=== PATIENT | female | born 1945 | race African-American/Black ===

== ENCOUNTER 2016-09-01 20:25 | Observation (INO) | payer OTHER ==
--- NOTE | 2016-09-01 20:33 | PDOC ---
Rapid Medical Evaluation Chief Complaint: Syncope/Near Syncope Time Seen by Provider: 09/01/16 20:33 Medical Evaluation: Allergies Allergy/AdvReac Type Severity Reaction Status Date / Time Penicillins Allergy Intermediate Rash Verified 09/01/16 20:32 Penicillins Allergy Intermediate Rash Uncoded 09/01/16 20:32 DUST Allergy Uncoded 09/01/16 20:32 09/01/16 20:35 71 yo c/o syncope episode while bearing down on the toilet just prior to her arrival. "Slight chest pain" without sob, ext numbness/tingling sensation.
[2016-09-01 20:57] LABS: BASOPHIL 0.3 % (0-2.0); EOSINOPHIL 0.7 % (0-4.5); MCH 30.6 pg (25.7-33.7); MEAN CELL VOLUME 90.2 fl (80-96); MEAN PLT VOLUME 7.4 fl (7.5-11.1); NEUTROPHILS 86.7 % (42.8-82.8); PLATELET COUNT 271 K/MM3 (134-434); RDW 15.4 % (11.6-15.6)
[2016-09-01 21:11] LABS: INR 1.12 (0.82-1.09); PROTHROMBIN TIME (PATIENT) 12.4 SEC (9.98-11.88)
[2016-09-01 21:20] LABS: ALBUMIN 3.8 g/dl (3.4-5.0); ANION GAP 6 (8-16); BILIRUBIN,TOTAL 0.3 mg/dL (0.2-1.0); CO2 30 mmol/L (21-32); GLUCOSE,RANDOM 112 mg/dL (74-106); SGOT/AST 13 U/L (15-37); SGPT/ALT 19 U/L (12-78); TOT PROT 6.9 g/dl (6.4-8.2)
[2016-09-01 21:23] LABS: ALK PHOS 72 U/L (45-117); TROPONIN I < 0.02 ng/ml (0.00-0.05)
--- NOTE | 2016-09-01 21:48 | PDOC ---
History of Present Illness <Caridad Pearson - Last Filed: 09/02/16 01:06> <Makenna Angel Winnie - Last Filed: 09/02/16 01:21> - General Chief Complaint: Syncope/Near Syncope Stated Complaint: SYNCOPE/HEADACHE Time Seen by Provider: 09/01/16 20:33 - History of Present Illness Initial Comments: 09/01/16 21:48 Patient is a 71 year old female with significant medical hx of GI bleed, hemorrhoids/polyps, HTN, breast CA (left breast lumpectomy with radiation), gallstones s/p cholecystectomy, chronic lower back pain with limited mobility of lower extremities, and ventral hernia who is presenting to the ED for a syncopal episode after having a bowel movement this evening. After having a BM the patient stood up, felt lightheaded with some fleeting chest pain, and collapsed. The patient hit her head on the doorframe and fell onto the ground, losing consciousness. She endorses some right knee pain since the fall and states she felt weak throughout the day prior to the event. The patient is still feeling weak with some mild chest pain at this time. Patient endorses lower extremity pain, weakness and limited mobility secondary to chronic lower back pain. Allergies: NKDA Surgical Hx: laminectomy, cholecystectomy, lumpectomy (left breast), cardiac cath (09/2011), endoscopy (08/28/16) Social Hx: denies toxic habits PMD: Ambrose Salter MD GI: Winnie Benitez MD Credentialing Coordinator: Gideon Chanel MD Railroad Car Loader: Michele Salmeron MD (Caridad Pearson) Past History <Caridad Pearson - Last Filed: 09/02/16 01:06> - Past Medical History Anemia: Yes Asthma: Yes ( A CHILD) Cancer: No Cardiac Disorders: Yes (CARDIAC CATH 09/2011; NO STENTS) CVA: No COPD: No CHF: No Dementia: No Diabetes: No GI Disorders: Yes (REFLUX) Disorders: No HTN: Yes Hypercholesterolemia: Yes Liver Disease: No Seizures: No Thyroid Disease: No - Surgical History Abdominal Surgery: Yes (HERNIA REPAIR) Appendectomy: No Cardiac Surgery: No (CARDIAC CATH) Cholecystectomy: Yes Lung Surgery: No Neurologic Surgery: Yes (CERVICAL LAMINECTOMY) Orthopedic Surgery: No - Psycho/Social/Smoking Cessation Hx Suicidal Ideation: No Smoking History: Current every day smoker Have you smoked in the past 12 months: Yes Number of Cigarettes Smoked Daily: 4 Information on smoking cessation initiated: Yes 'Breaking Loose' booklet given: 09/01/16 Hx Alcohol Use: Yes (SOCIAL) Drug/Substance Use Hx: No Substance Use Type: None Hx Substance Use Treatment: No <Makenna Angel - Last Filed: 09/02/16 01:21> - Past Medical History Allergies/Adverse Reactions: Allergies Allergy/AdvReac Type Severity Reaction Status Date / Time Penicillins Allergy Intermediate Rash Verified 09/01/16 20:32 Penicillins Allergy Intermediate Rash Uncoded 09/01/16 20:32 DUST Allergy Uncoded 09/01/16 20:32 Home Medications: Ambulatory Orders Cholecalciferol (Vitamin D3) [Vitamin D] 1,000 unit PO DAILY #0 capsule Losartan/Hydrochlorothiazide [Hyzaar 50-12.5 Tablet] 1 each PO DAILY #0 tablet 09/17/12 Melatonin 6 mg PO HS #0 tablet 09/17/12 Multivitamins [Multivit ([facility] Formulary)] 1 each PO DAILY #0 tab 09/17/12 Nitroglycerin Sublingual [Nitrostat -] 0.4 mg SL PRN 09/06/13 Rosuvastatin Calcium [Crestor] 5 mg PO DAILY 09/06/13 Metoprolol Succinate [Toprol XL -] 50 mg PO HS 09/07/13 Ascorbic Acid [Vitamin C -] 500 mg PO DAILY 05/09/14 Polyethylene Glycol 3350 [Miralax 119 gm Btl -] 17 gm PO HS PRN 05/09/14 Hydrocodone/Acetaminophen [Lortab 5-325 mg Tablet] 1 each PO Q6H PRN #20 tablet 05/18/14 Hydrocortisone Acetate [Anusol Hc Suppository -] 25 mg RC BID PRN #28 supp.rect 04/27/16 Witch Jo 50% (Tucks) [Tucks Witch Jo Pads] 40 pad TP PRN PRN #40 pad 04/27 Aspirin Coated [Ecotrin -] 1 tab PO DAILY 09/01/16 Sertraline HCl [Zoloft] 50 mg PO DAILY 09/01/16 Cardiac Specific PMH - Complaint Specific PMHX Pacemaker: No <Makenna Angel - Last Filed: 09/02/16 01:21> Review of Systems <Caridad Pearson - Last Filed: 09/02/16 01:06> <Makenna Angel - Last Filed: 09/02/16 01:21> - Review of Systems Comments:: 09/01/16 21:50 CONSTITUTIONAL: Absent: fever, chills, diaphoresis, generalized weakness, malaise, loss of appetite HEENT: Absent: rhinorrhea, nasal congestion, throat pain, throat swelling, difficulty swallowing, mouth swelling, ear pain, eye pain, visual changes CARDIOVASCULAR: Present: chest pain, lightheadedness, syncope Absent: palpitations, irregular heart rate, peripheral edema RESPIRATORY: Absent: cough, shortness of breath, dyspnea with exertion, orthopnea, wheezing, stridor, hemoptysis GASTROINTESTINAL: Absent: abdominal pain, abdominal distension, nausea, vomiting, diarrhea, constipation, melena, hematochezia GENITOURINARY: Absent: dysuria, frequency, urgency, hesitancy, hematuria, flank pain, genital pain MUSCULOSKELETAL: Present: lower extremity weakness and pain (chronic) Absent: myalgia, arthralgia, joint swelling SKIN: Absent: rash, itching, pallor HEMATOLOGIC/IMMUNOLOGIC: Absent: easy bleeding, easy bruising, lymphadenopathy, frequent infections ENDOCRINE: Absent: unexplained weight gain, unexplained weight loss, heat intolerance, cold intolerance NEUROLOGIC: Absent: headache, paresthesia, seizure, mental status changes, bladder or bowel incontinence. PSYCHIATRIC: Absent: anxiety, depression, suicidal or homicidal ideation, hallucinations (MichelCaridad) *Physical Exam <Caridad Pearson - Last Filed: 09/02/16 01:06> <Makenna Angel - Last Filed: 09/02/16 01:21> - Vital Signs Last Vital Signs Temp Pulse Resp BP Pulse Ox 97.9 F 86 18 101/56 98 09/01/16 20:32 09/01/16 20:32 09/01/16 20:32 09/01/16 20:32 09/01/16 20:32 - Physical Exam Comments: 09/01/16 21:52 GENERAL: Slender. Awake and alert. No acute distress. HEENT: Normocephalic, atraumatic. PERRLA, EOMI. No conjunctival pallor. Sclera are non- icteric. Moist mucous membranes. Oropharynx is clear. NECK: Supple. Full ROM. No JVD. Carotid pulses 2+ and symmetric, without bruits. No thyromegaly. No lymphadenopathy. CARDIOVASCULAR: Regular rate and rhythm. No murmurs, rubs, or gallops. Distal pulses are 2+ and symmetric. PULMONARY: No evidence of respiratory distress. Lungs clear to auscultation bilaterally. No wheezing, rales or rhonchi. ABDOMINAL: Soft. Non-tender. Non-distended. No rebound or guarding. No organomegaly. Normoactive bowel sounds. MUSCULOSKELETAL: Chronic lower back pain which has limited ROM of lower extremities. No bony deformities or tenderness. No CVA tenderness. EXTREMITIES: No cyanosis. No clubbing. No edema. No calf tenderness. SKIN: Warm and dry. Normal capillary refill. No rashes. No jaundice. NEUROLOGICAL: Alert, awake, appropriate. Cranial nerves 2-12 intact. Normal speech. No slurred speech. No facial droop. No confusion. PSYCHIATRIC: Cooperative. Good eye contact. Appropriate mood and affect. (Caridad Pearson) Heart Score/ECG Review <Caridad Pearson - Last Filed: 09/02/16 01:06> - History History: Moderately suspicious - Electrocardiogram EKG: Normal - Age Age: >/= 65 - Risk Factors Risk Factors Heart Score: Yes Hx Hypertension Based on the list above the patient has:: 1-2 risk factors - Troponin Troponin: </= normal limit - Score Heart Score - Total: 4 - ECG Intrepretation Rhythm: Regular Rhythm - [place]: Normal - P and AL Prominent R with upright T in V1 (true posterior AL): No Delta Wave(s) Present: No WPW: No - QRS Poor R Wave Progression: No Q Wave Present: Yes - ST and T Early Repolarization: No Non Specific ST-T Wave changes: Yes - ECG Impressions Normal ECG: Yes Non-specific ST Elevation: No Ischemic Changes: No Bradycardia: No <Makenna Angel - Last Filed: 09/02/16 01:21> #1 09/01/16 21:55 Normal sinus rhythm at 83 bpm Normal ECG (Caridad Pearson) ED Treatment Course - LABORATORY CBC & Chemistry Diagram: 09/01/16 20:50 09/01/16 20:50 - Consult/PCP Time Called: 00:51 (Attempted to call answering service three times, the line continuously rings. Have called Dr Vega's cell multiple times and left voicemail at 00:30. Awaiting a callback.) Case discussed with personal care physician: Eddy Vega MD <Caridad Pearson - Last Filed: 09/02/16 01:06> - LABORATORY CBC & Chemistry Diagram: 09/01/16 20:50 09/01/16 20:50 <Makenna Angel - Last Filed: 09/02/16 01:21> - ADDITIONAL ORDERS Additional order review: Laboratory Results 09/02/16 09/01/16 09/01/16 00:04 20:50 20:50 INR 1.12 Sodium 141 Potassium 3.6 Chloride 105 Carbon Dioxide 30 Anion Gap 6 L BUN 17 D Creatinine 1.0 D Creat Clearance w eGFR 54.50 Random Glucose 112 H D Calcium 9.0 Total Bilirubin 0.3 D AST 13 L D ALT 19 Alkaline Phosphatase 72 Creatine Kinase 74 Troponin I < 0.02 Total Protein 6.9 Albumin 3.8 Urine Color Ltyellow Urine Appearance Clear Urine pH 6.0 Ur Specific [place] 1.008 Urine Protein Negative Urine Glucose (UA) Negative Urine Ketones Negative Urine Blood Negative Urine Nitrite Negative Urine Bilirubin Negative Urine Urobilinogen Negative Ur Leukocyte Esterase Negative 09/01/16 20:50 RBC 4.09 MCV 90.2 MCHC 34.0 RDW 15.4 MPV 7.4 L Neutrophils % 86.7 H D Lymphocytes % 6.6 L D Monocytes % 5.7 Eosinophils % 0.7 Basophils % 0.3 - RADIOLOGY Radiology Studies Ordered: Category Date Time Status HEAD CT WITHOUT CONTRAST [CT] Stat CT Scan 09/01/16 21:15 Completed Radiograph Interpretation: 09/02/16 01:[address] Impression: No CT evidence of acute intracranial pathology. Apparent mid left frontal lobe cortical atrophy inferiorly described on a 2013 MRI study is difficult to appreciate on CT. Small amount of fluid within the right mastoid air cells inferiorly. Reported By: Gideon Paez MD (Caridad Pearson) *DC/Admit/Observation/Transfer <Caridad Pearson - Last Filed: 09/02/16 01:06> - Discharge Dispostion Admit: Yes <Makenna Angel - Last Filed: 09/02/16 01:21> Diagnosis at time of Disposition: Syncope Qualifiers: Syncope type: unspecified Qualified Code(s): R55 - Syncope and collapse Injury of head Qualifiers: Encounter type: initial encounter Qualified Code(s): S09.90XA - Unspecified injury of head, initial encounter Chest pain Qualifiers: Chest pain type: unspecified Qualified Code(s): R07.9 - Chest pain, unspecified - Referrals Referrals: Ambrose Salter MD [Primary Care Provider] - - Attestations Scribe Attestion: 09/01/16 21:55 Documentation prepared by Caridad Pearson, acting as medical interpreter for Makenna Angel MD. (Caridad Pearson)
[2016-09-02 00:20] LABS: URINE APPEARANCE CLEAR; URINE BILIRUBIN NEGATIVE (NEGATIVE); URINE BLOOD NEGATIVE (NEGATIVE); URINE COLOR LTYELLOW; URINE GLUCOSE (UA) NEGATIVE (NEGATIVE); URINE KETONE NEGATIVE (NEGATIVE); URINE LEUK ESTERASE NEGATIVE (NEGATIVE); URINE NITRITE NEGATIVE (NEGATIVE); URINE PROTEIN NEGATIVE (NEGATIVE); URINE UROBILINOGEN NEGATIVE E.U./dl (0.2-1.0)
--- NOTE | 2016-09-02 01:17 | PN ---
Teaching Attending Note ATTENDING PHYSICIAN STATEMENT I saw and evaluated the patient. I reviewed the resident's note and discussed the case with the resident. I agree with the resident's findings and plan as documented. SUBJECTIVE: OBJECTIVE: ASSESSMENT AND PLAN:
[2016-09-02] MEDS ORDERED: POLYETHYLENE GLYCOL 3350 119 GM BTL PO PRN (02:20)
--- NOTE | 2016-09-02 02:23 | HP ---
CHIEF COMPLAINT: syncope PCP: Gaetano HISTORY OF PRESENT ILLNESS: This is a 71 year old female with a past medical history of HTN, HLD, GI bleed, hemorrhoids, polyps, GERD, BrCA, chronic low back pain who presented to the ED s /p syncope. Pt reports that after having a BM she stood up, went to turn the light off, became lightheaded, and passed out. She also had fleeting chest pain. Pt states she is feeling fine, steady on her feet as per her RN. Pt denies current chest pain, SOB, abdominal pain, N/V/D, lightheadedness. ER course was notable for: (1) troponin neg (2) CT head with no acute changes (3) ECG NSR Recent Travel: pt denies PAST MEDICAL HISTORY: HTN HLD GI bleed hemorrhoids and polyps GERD BrCA s/p lumpectomy and radiation chronic low back pain with lower extremity weakness anemia PAST SURGICAL HISTORY: cholecystectomy ventral hernia repair x 2 cervical laminectomy lumbar surgery cardiac cath 09/2011, no stents Social History: Smoking: smokes 4 cig/day, pt has been weaning down. Smoked since age 17, never up to 1 ppd Alcohol: socially, special occasions Drugs: pt denies Family History: mother age 82, stomach CA, had heart problems father early 80s, colon CA brother age 49, cirrhosis, [place] sister alive with osteoporosis Allergies Penicillins Allergy (Intermediate, Verified 09/01/16 20:32) Rash Penicillins Allergy (Intermediate, Uncoded 09/01/16 20:32) Rash DUST Allergy (Uncoded 09/01/16 20:32) HOME MEDICATIONS: 3 Medication Instructions Recorded Cholecalciferol (Vitamin D3) 1,000 unit PO DAILY #0 capsule 09/17/12 [Vitamin D] Losartan/Hydrochlorothiazide 1 each PO DAILY #0 tablet 09/17/12 [Hyzaar 50-12.5 Tablet] Melatonin 6 mg PO HS #0 tablet 09/17/12 Multivitamins [Multivit ([facility] 1 each PO DAILY #0 tab 09/17/12 Formulary)] Nitroglycerin Sublingual 0.4 mg SL PRN 09/06/13 [Nitrostat -] Rosuvastatin Calcium [Crestor] 5 mg PO DAILY 09/06/13 Metoprolol Succinate [Toprol XL -] 50 mg PO HS 09/07/13 Ascorbic Acid [Vitamin C -] 500 mg PO DAILY 05/09/14 Polyethylene Glycol 3350 [Miralax 17 gm PO HS PRN 05/09/14 119 gm Btl -] Hydrocodone/Acetaminophen [Lortab 1 each PO Q6H PRN #20 tablet 05/18/14 5-325 mg Tablet] Hydrocortisone Acetate [Anusol Hc 25 mg RC BID PRN #28 supp.rect 04/27/16 Suppository -] Witch Jo 50% (Tucks) [Tucks 40 pad TP PRN PRN #40 pad 04/27/16 Witch Jo Pads] Aspirin Coated [Ecotrin -] 1 tab PO DAILY 09/01/16 Sertraline HCl [Zoloft] 50 mg PO DAILY 09/01/16 REVIEW OF SYSTEMS CONSTITUTIONAL: Absent: fever, chills, diaphoresis, generalized weakness, malaise, loss of appetite, weight change HEENT: Absent: rhinorrhea, nasal congestion, throat pain, throat swelling, difficulty swallowing, mouth swelling, ear pain, eye pain, visual changes CARDIOVASCULAR: Present: chest pain, syncope Absent: palpitations, irregular heart rate, lightheadedness, peripheral edema RESPIRATORY: Absent: cough, shortness of breath, dyspnea with exertion, orthopnea, wheezing, stridor, hemoptysis GASTROINTESTINAL: Absent: abdominal pain, abdominal distension, nausea, vomiting, diarrhea, constipation, melena, hematochezia GENITOURINARY: Absent: dysuria, frequency, urgency, hesitancy, hematuria, flank pain, genital pain MUSCULOSKELETAL: Absent: myalgia, arthralgia, joint swelling, back pain, neck pain SKIN: Absent: rash, itching, pallor HEMATOLOGIC/IMMUNOLOGIC: Absent: easy bleeding, easy bruising, lymphadenopathy, frequent infections ENDOCRINE: Absent: unexplained weight gain, unexplained weight loss, heat intolerance, cold intolerance NEUROLOGIC: Absent: headache, focal weakness or paresthesias, dizziness, unsteady gait, seizure, mental status changes, bladder or bowel incontinence PSYCHIATRIC: Absent: anxiety, depression, suicidal or homicidal ideation, hallucinations. PHYSICAL EXAMINATION Vital Signs - 24 hr 3 09/01/16 20:32 Temperature 97.9 F Pulse Rate 86 Respiratory 18 Rate Blood Pressure 101/56 O2 Sat by Pulse 98 Oximetry (%) GENERAL: Awake, alert, and fully oriented, in no acute distress. HEAD: Normal with no signs of trauma. EYES: Pupils equal, round and reactive to light, extraocular movements intact, sclera anicteric, conjunctiva clear. No lid lag. EARS, NOSE, THROAT: Ears normal, nares patent, oropharynx clear without exudates. Moist mucous membranes. NECK: Normal range of motion, supple without lymphadenopathy, JVD, or masses. LUNGS: Breath sounds equal, clear to auscultation bilaterally. No wheezes, and no crackles. No accessory muscle use. HEART: Regular rate and rhythm, normal S1 and S2 without murmur, rub or gallop. ABDOMEN: Soft, nontender, not distended, normoactive bowel sounds, no guarding, no rebound, no masses. No hepatomegaly or splenomegaly. MUSCULOSKELETAL: Normal range of motion at all joints. No bony deformities or tenderness. No CVA tenderness. UPPER EXTREMITIES: 2+ pulses, warm, well-perfused. No cyanosis. No clubbing. Cap refill <2 seconds. No peripheral edema. LOWER EXTREMITIES: 2+ pulses, warm, well-perfused. No calf tenderness. No peripheral edema. NEUROLOGICAL: Cranial nerves II-XII intact. Normal speech. Normal gait. PSYCHIATRIC: Cooperative. Good eye contact. Appropriate mood and affect. SKIN: Warm, dry, normal turgor, no rashes or lesions noted. Laboratory Results - last 24 hr 3 09/01/16 09/01/16 09/01/16 20:50 20:50 20:50 WBC 8.0 D RBC 4.09 Hgb 12.5 Hct 36.8 MCV 90.2 MCHC 34.0 RDW 15.4 Plt Count 271 MPV 7.4 L Neutrophils % 86.7 H D Lymphocytes % 6.6 L D Monocytes % 5.7 Eosinophils % 0.7 Basophils % 0.3 INR 1.12 Sodium 141 Potassium 3.6 Chloride 105 Carbon Dioxide 30 Anion Gap 6 L BUN 17 D Creatinine 1.0 D Creat Clearance w eGFR 54.50 Random Glucose 112 H D Calcium 9.0 Total Bilirubin 0.3 D AST 13 L D ALT 19 Alkaline Phosphatase 72 Creatine Kinase 74 Troponin I < 0.02 Total Protein 6.9 Albumin 3.8 Urine Color Urine Appearance Urine pH Ur Specific [place] Urine Protein Urine Glucose (UA) Urine Ketones Urine Blood Urine Nitrite Urine Bilirubin Urine Urobilinogen Ur Leukocyte Esterase 3 Urine Color Ltyellow 09/02/16 00:04 Urine Appearance Clear 09/02/16 00:04 Urine pH 6.0 (5.0-8.0) 09/02/16 00:04 Ur Specific [place] 1.008 (1.001-1.035) 09/02/16 00:04 Urine Protein Negative (NEGATIVE) 09/02/16 00:04 Urine Glucose (UA) Negative (NEGATIVE) 09/02/16 00:04 Urine Ketones Negative (NEGATIVE) 09/02/16 00:04 Urine Blood Negative (NEGATIVE) 09/02/16 00:04 Urine Nitrite Negative (NEGATIVE) 09/02/16 00:04 Urine Bilirubin Negative (NEGATIVE) 09/02/16 00:04 Ur Leukocyte Esterase Negative (NEGATIVE) 09/02/16 00:04 ECG: NSR< rate 85, QTC 442, no acute ST/T wave changes CT head: Impression: No CT evidence of acute intracranial pathology. Apparent mild left frontal lobe cortical atrophy inferiorly described on a 2013 MRI study is difficult to appreciate on CT. Small amount of fluid within the right mastoid air cells inferiorly. CXR: NO obvious infiltrate or effusion, final read pending ASSESSMENT/PLAN: 71yF with PMH HTN, HLD, GI bleed, hemorrhoids, polyps, GERD, BrCA, chronic low back pain presented to the ED s/p syncope. She is being admitted for observation. Syncope - likely vasovagal - telemetry monitoring - trop neg x 1, trend x 2 more HTN - cont home medications HLD - cont home medications GERD - home omeprazole changed to formulary protonix DVT PPX - chemoprophylaxis deferred as LOS expected <48h, if stays longer, reassess indication - encourage ambulation FEN - given IVF in ED, tolerating po at present - lytes ok, repeat labs in am - low sodium diet as tolerated Dispo: Pt currently requires inpatient observation for her emergent condition. Visit type - Emergency Visit Emergency Visit: Yes ED Registration Date: 09/01/16 Care time: The patient presented to the Emergency Department on the above date and was hospitalized for further evaluation of their emergent condition. - New Patient This patient is new to me today: Yes Date on this admission: 09/02/16 - Critical Care Critical Care patient: No
[2016-09-02 04:07] VITALS: BMI 25.0
[2016-09-02 04:57] LABS: TROPONIN I < 0.02 ng/ml (0.00-0.05)
[2016-09-02 09:22] LABS: BASOPHIL 0.3 % (0-2.0); EOSINOPHIL 2.3 % (0-4.5); MCH 30.2 pg (25.7-33.7); MCHC 33.6 g/dl (32.0-36.0); MEAN PLT VOLUME 7.5 fl (7.5-11.1); NEUTROPHILS 73.4 % (42.8-82.8); PLATELET COUNT 238 K/MM3 (134-434); WHITE BLOOD COUNT 5.3 K/mm3 (4.0-10.0)
[2016-09-02 09:43] LABS: ANION GAP 7 (8-16); CALCIUM 8.8 mg/dL (8.5-10.1); CO2 29 mmol/L (21-32); CREATININE 0.7 mg/dL (0.55-1.02); GLUCOSE,RANDOM 104 mg/dL (74-106); MAGNESIUM 2.1 mg/dL (1.8-2.4); PHOSPHOROUS 2.1 mg/dL (2.5-4.9)
[2016-09-02 09:45] LABS: TROPONIN I < 0.02 ng/ml (0.00-0.05)
[2016-09-02] MEDS ORDERED: MULTIVITAMINS (DAILY MVI) TABLET (FP) PO SCH (10:00)
[2016-09-02] MEDS ORDERED: CHOLECALCIFEROL (VITAMIN D3) 1,000 UNIT TABLET (FP) PO SCH (10:00)
[2016-09-02] MEDS ORDERED: ASPIRIN COATED 81 MG TABLET.EC PO SCH (10:00)
[2016-09-02] MEDS ORDERED: PANTOPRAZOLE 20 MG TABLET (FP) PO SCH (10:00)
[2016-09-02] MEDS ORDERED: ROSUVASTATIN CA 5 MG TABLET (FP) PO SCH (10:00)
[2016-09-02] MEDS ORDERED: LOSARTAN 50MG/HCTZ 12.5MG 1 TAB (FP) PO SCH (10:00)
[2016-09-02] MEDS ORDERED: SERTRALINE HCL 50 MG TABLET (FP) PO SCH (10:00)
[2016-09-02] MEDS ORDERED: PT OWN MED DRAWER 7, Y5N ONE (12:09)
[2016-09-02] MEDS ORDERED: NAPH,MB-DB/K PH,MBDB POWDER PACKET PO ONE (12:33)
[2016-09-02] MEDS ORDERED: POTASSIUM CHLORIDE TABS 20 MEQ TABLET.ER (FP) PO ONE (13:00)
--- NOTE | 2016-09-02 13:14 | EKG ---
Test Reason : Blood Pressure : / mmHG Vent. Rate : 083 BPM Atrial Rate : 083 BPM P-R Int : 174 ms QRS Dur : 090 ms QT Int : 376 ms P-R-T Axes : 065 -06 039 degrees QTc Int : 441 ms NORMAL SINUS RHYTHM RSR' OR QR PATTERN IN V1 SUGGESTS RIGHT VENTRICULAR CONDUCTION DELAY WHEN COMPARED WITH ECG OF 18-MAY-2014 08:56, NO SIGNIFICANT CHANGE WAS FOUND Confirmed by YAA SHOEMAKER MD ([id number]) on 09/02/2016 1:14:11 PM Referred By: Confirmed By:YAA SHOEMAKER MD
[2016-09-02] MEDS ORDERED: POTASSIUM CHLORIDE 40 MEQ/30 ML UNIT DOSE CUP ONE (14:20)
--- NOTE | 2016-09-02 15:12 | DS ---
Physical Exam: SUBJECTIVE: Patient seen and examined OBJECTIVE: Vital Signs Period Temp Pulse Resp BP Sys/Rios Pulse Ox Last 24 Hr 97.9 F-98.1 F 70-92 20-20 109-143/67-92 97 PHYSICAL EXAM GENERAL: The patient is awake, alert, and fully oriented, in no acute distress. HEAD: Normal with no signs of trauma. EYES: PERRL, extraocular movements intact, sclera anicteric, conjunctiva clear. ENT: Ears normal, nares patent, oropharynx clear without exudates, moist mucous membranes. NECK: Trachea midline, full range of motion, supple. LUNGS: Breath sounds equal, clear to auscultation bilaterally, no wheezes, no crackles, no accessory muscle use. HEART: Regular rate and rhythm, S1, S2 without murmur, rub or gallop. ABDOMEN: Soft, nontender, nondistended, normoactive bowel sounds, no guarding, no rebound, no hepatosplenomegaly, no masses. EXTREMITIES: 2+ pulses, warm, well-perfused, no edema. NEUROLOGICAL: Cranial nerves II through XII grossly intact. Normal speech, gait not observed. PSYCH: Normal mood, normal affect. SKIN: Warm, dry, normal turgor, no rashes or lesions noted. LABS Laboratory Results - last 24 hr 09/02/16 09/02/16 09/02/16 03:50 09:00 09:00 WBC 5.3 D RBC 3.82 Hgb 11.5 Hct 34.4 MCV 90.0 MCHC 33.6 RDW 15.0 Plt Count 238 MPV 7.5 Neutrophils % 73.4 Lymphocytes % 17.2 D Monocytes % 6.8 Eosinophils % 2.3 D Basophils % 0.3 Sodium 145 Potassium 3.4 L Chloride 109 H Carbon Dioxide 29 Anion Gap 7 L BUN 11 D Creatinine 0.7 D Random Glucose 104 Calcium 8.8 Phosphorus 2.1 L Magnesium 2.1 Creatine Kinase 68 69 Troponin I < 0.02 < 0.02 HOSPITAL COURSE: Date of Admission:09/02/16 Date of Discharge: 09/02/16 Discharge Summary Reason For Visit: SYNCOPE CHEST PAIN HEAD INJURY Current Active Problems Chest pain (Acute) Head injury (Acute) Syncope (Acute) - Instructions Referrals: Ambrose Salter MD [Primary Care Provider] - - Home Medications Comprehensive Discharge Medication List: Ambulatory Orders Cholecalciferol (Vitamin D3) [Vitamin D] 1,000 unit PO DAILY #0 capsule Losartan/Hydrochlorothiazide [Hyzaar 50-12.5 Tablet] 1 each PO DAILY #0 tablet 09/17/12 Melatonin 6 mg PO HS #0 tablet 09/17/12 Multivitamins [Multivit ([facility] Formulary)] 1 each PO DAILY #0 tab 09/17/12 Nitroglycerin Sublingual [Nitrostat -] 0.4 mg SL PRN 09/06/13 Rosuvastatin Calcium [Crestor] 5 mg PO DAILY 09/06/13 Metoprolol Succinate [Toprol XL -] 50 mg PO HS 09/07/13 Ascorbic Acid [Vitamin C -] 500 mg PO DAILY 05/09/14 Polyethylene Glycol 3350 [Miralax 119 gm Btl -] 17 gm PO HS PRN 05/09/14 Hydrocodone/Acetaminophen [Lortab 5-325 mg Tablet] 1 each PO Q6H PRN #20 tablet 05/18/14 Hydrocortisone Acetate [Anusol Hc Suppository -] 25 mg RC BID PRN #28 supp.rect 04/27/16 Witch Jo 50% (Tucks) [Tucks Witch Jo Pads] 40 pad TP PRN PRN #40 pad 04/27 Aspirin Coated [Ecotrin -] 1 tab PO DAILY 09/01/16 Sertraline HCl [Zoloft] 50 mg PO DAILY 09/01/16
--- NOTE | 2016-09-02 16:35 | DS ---
Physical Exam: SUBJECTIVE: Patient seen and examined OBJECTIVE: Vital Signs Period Temp Pulse Resp BP Sys/Rios Pulse Ox Last 24 Hr 97.8 F-98.6 F 70-92 18-20 109-143/57-92 97 PHYSICAL EXAM GENERAL: The patient is awake, alert, and fully oriented, in no acute distress. HEAD: Normal with no signs of trauma. EYES: PERRL, extraocular movements intact, sclera anicteric, conjunctiva clear. ENT: Ears normal, nares patent, oropharynx clear without exudates, moist mucous membranes. NECK: Trachea midline, full range of motion, supple. LUNGS: Breath sounds equal, clear to auscultation bilaterally, no wheezes, no crackles, no accessory muscle use. HEART: Regular rate and rhythm, S1, S2 without murmur, rub or gallop. ABDOMEN: Soft, nontender, nondistended, normoactive bowel sounds, no guarding, no rebound, no hepatosplenomegaly, no masses. EXTREMITIES: 2+ pulses, warm, well-perfused, no edema. NEUROLOGICAL: Cranial nerves II through XII grossly intact. Normal speech, gait not observed. PSYCH: Normal mood, normal affect. SKIN: Warm, dry, normal turgor, no rashes or lesions noted. LABS Laboratory Results - last 24 hr 09/02/16 09/02/16 09/02/16 03:50 09:00 09:00 WBC 5.3 D RBC 3.82 Hgb 11.5 Hct 34.4 MCV 90.0 MCHC 33.6 RDW 15.0 Plt Count 238 MPV 7.5 Neutrophils % 73.4 Lymphocytes % 17.2 D Monocytes % 6.8 Eosinophils % 2.3 D Basophils % 0.3 Sodium 145 Potassium 3.4 L Chloride 109 H Carbon Dioxide 29 Anion Gap 7 L BUN 11 D Creatinine 0.7 D Random Glucose 104 Calcium 8.8 Phosphorus 2.1 L Magnesium 2.1 Creatine Kinase 68 69 Troponin I < 0.02 < 0.02 HOSPITAL COURSE: Date of Admission:09/02/16 Date of Discharge: 09/02/16 Pre hospital course 71 year old female with a past medical history of HTN, HLD, GI bleed, hemorrhoids, polyps, GERD, BrCA, and chronic low back pain who presented to the ED s/p syncope. Pt reported that while straining to have a BM she became lightheaded. She continued to strain. When she stood up she passed out. ER course (1) troponin neg (2) CT head with no acute changes (3) ECG SR Subsequent hospital course Syncope --ACS ruled out: troponins neg x 3, no significant arrhythmias on pvc monitor, CXR unremarkable, ECG not suggestive of acute ischemic event --no orthostasis noted; patient asymptomatic during hospital stay --likely vasovagal episode from straining Hypertension --continued on home medications: metoprolol ER, Hyzaar Hyperlipidemia --continued on home medications: Crestor, ASA Minutes to complete discharge: 35 Discharge Summary Reason For Visit: SYNCOPE CHEST PAIN HEAD INJURY Current Active Problems Chest pain (Acute) Head injury (Acute) Syncope (Acute) - Instructions Diet, Activity, Other Instructions: You should follow up with your groundwater monitoring technician Dr. Salmeron within one week of your discharge. Drink plenty of fluids and stay well-hydrated. NEVER strain when you are having a bowel movement. Return to the emergency department for any new or worsening symptoms. Referrals: Ambrose Salter MD [Primary Care Provider] - Michele Salmeron MD [Staff Physician] - 1 Week Disposition: HOME - Home Medications Comprehensive Discharge Medication List: Ambulatory Orders Cholecalciferol (Vitamin D3) [Vitamin D] 1,000 unit PO DAILY #0 capsule Losartan/Hydrochlorothiazide [Hyzaar 50-12.5 Tablet] 1 each PO DAILY #0 tablet 09/17/12 Melatonin 6 mg PO HS #0 tablet 09/17/12 Multivitamins [Multivit ([facility] Formulary)] 1 each PO DAILY #0 tab 09/17/12 Nitroglycerin Sublingual [Nitrostat -] 0.4 mg SL PRN 09/06/13 Rosuvastatin Calcium [Crestor] 5 mg PO DAILY 09/06/13 Metoprolol Succinate [Toprol XL -] 50 mg PO HS 09/07/13 Ascorbic Acid [Vitamin C -] 500 mg PO DAILY 05/09/14 Polyethylene Glycol 3350 [Miralax 119 gm Btl -] 17 gm PO HS PRN 05/09/14 Hydrocodone/Acetaminophen [Lortab 5-325 mg Tablet] 1 each PO Q6H PRN #20 tablet 05/18/14 Hydrocortisone Acetate [Anusol Hc Suppository -] 25 mg RC BID PRN #28 supp.rect 04/27/16 Witch Jo 50% (Tucks) [Tucks Witch Jo Pads] 40 pad TP PRN PRN #40 pad 04/27 Aspirin Coated [Ecotrin -] 1 tab PO DAILY 09/01/16 Sertraline HCl [Zoloft] 50 mg PO DAILY 09/01/16 This patient is new to me today: Yes Date on this admission: 09/03/16 Emergency Visit: Yes ED Registration Date: 09/02/16 Care time: The patient presented to the Emergency Department on the above date and was hospitalized for further evaluation of their emergent condition. Critical Care patient: No - Discharge Referral Referred to [facility] Med [facility].C[facility] No
--- NOTE | 2016-09-02 17:01 | CON.CARD ---
Consult Consult Specialty:: Cardiology Referred by:: Hospitalist Reason for Consultation:: Cardiac evaluation - History of Present Illness Chief Complaint: Syncope History of Present Illness: Patient is a 71 year old female well known to our office (sees Dr. Salmeron) with underlying history of HTN, hypercholesterolemia, GI bleed due to hemorrhoids and polyps, GERD, breast CA who presented with syncope. She was in the bathroom straining while having bowel movement and then when she got up, she became dizzy and fell - passed out. She managed to crawl over to the couch and called her daughter who brought her into the hospital. She denies shortness of breath or chest pain. She denies palpitations. She was not orthostatic in the hospital. Denies fever, but complains of chills. Denies headache. There appears to be no visible external injuries. Cardiology consultation was called for further evaluation. Family History: mother age 82, stomach CA, had heart problems father early 80s, colon CA brother age 49, cirrhosis, [place] sister alive with osteoporosis - History Source History Provided By: Patient, Family Member, Medical Record Limitations to Obtaining History: No Limitations - Past Medical History Cardio/Vascular: Yes: HTN, Hyperlipdemia Gastrointestinal: Yes: GI Bleed, Hemorrhoids ...: No - Past Surgical History Past Surgical History: Yes: Cholecystectomy, Hernia Repair (Ventral hernia), Laminectomy - Alcohol/Substance Use Hx Alcohol Use: Yes (SOCIAL) - Smoking History Smoking history: Current every day smoker Have you smoked in the past 12 months: Yes Aproximately how many cigarettes per day: 4 Home Medications - Allergies Allergies/Adverse Reactions: Allergies Allergy/AdvReac Type Severity Reaction Status Date / Time Penicillins Allergy Intermediate Rash Verified 09/01/16 20:32 Penicillins Allergy Intermediate Rash Uncoded 09/01/16 20:32 DUST Allergy Uncoded 09/01/16 20:32 - Home Medications Home Medications: Ambulatory Orders Cholecalciferol (Vitamin D3) [Vitamin D] 1,000 unit PO DAILY #0 capsule Losartan/Hydrochlorothiazide [Hyzaar 50-12.5 Tablet] 1 each PO DAILY #0 tablet 09/17/12 Melatonin 6 mg PO HS #0 tablet 09/17/12 Multivitamins [Multivit ([facility] Formulary)] 1 each PO DAILY #0 tab 09/17/12 Nitroglycerin Sublingual [Nitrostat -] 0.4 mg SL PRN 09/06/13 Rosuvastatin Calcium [Crestor] 5 mg PO DAILY 09/06/13 Metoprolol Succinate [Toprol XL -] 50 mg PO HS 09/07/13 Ascorbic Acid [Vitamin C -] 500 mg PO DAILY 05/09/14 Polyethylene Glycol 3350 [Miralax 119 gm Btl -] 17 gm PO HS PRN 05/09/14 Hydrocodone/Acetaminophen [Lortab 5-325 mg Tablet] 1 each PO Q6H PRN #20 tablet 05/18/14 Hydrocortisone Acetate [Anusol Hc Suppository -] 25 mg RC BID PRN #28 supp.rect 04/27/16 Witch Jo 50% (Tucks) [Tucks Witch Jo Pads] 40 pad TP PRN PRN #40 pad 04/27 Aspirin Coated [Ecotrin -] 1 tab PO DAILY 09/01/16 Sertraline HCl [Zoloft] 50 mg PO DAILY 09/01/16 Family Disease History - Family Disease History Family Disease History: Heart Disease: Mother (Gastric), CA: Father (Colon), Mother Review of Systems - Review of Systems Constitutional: reports: Chills. denies: Fever Cardiovascular: denies: Chest Pain, Palpitations, Shortness of Breath Respiratory: reports: Cough. denies: Hemoptysis, Orthopnea, PND, SOB, SOB on Exertion Gastrointestinal: denies: Abdominal Pain, Constipation, Diarrhea, Melena, Nausea , Rectal Bleeding, Vomiting Neurological: reports: Dizziness, Syncope. denies: Change in LOC, Change in Speech, Headache, Numbness, Parasthesia, Seizure, Unsteady Gait Vital Signs: Vital Signs Temperature 97.8 F 09/02/16 16:06 Pulse Rate 87 09/02/16 16:06 Respiratory Rate 20 09/02/16 16:06 Blood Pressure 112/57 09/02/16 16:06 O2 Sat by Pulse Oximetry (%) 97 09/02/16 02:03 Neck: Yes: Supple Respiratory: Yes: CTA Bilaterally Gastrointestinal: Yes: Normal Bowel Sounds, Soft. No: Tenderness Cardiovascular: Yes: Regular Rate and Rhythm JVD: No Carotid Bruit: No PMI: Non-Displaced Heart Sounds: Yes: S1, S2 Edema: No - Other Data Labs, Other Data: CBC, BMP 09/02/16 09:00 09/02/16 09:00 INR, PTT INR 1.12 (0.82-1.09) 09/01/16 20:50 Troponin, BNP 09/02/16 09/02/16 03:50 09:00 Troponin I < 0.02 < 0.02 Laboratory Results - last 24 hr 09/01/16 09/01/16 09/01/16 20:50 20:50 20:50 WBC 8.0 D RBC 4.09 Hgb 12.5 Hct 36.8 MCV 90.2 MCHC 34.0 RDW 15.4 Plt Count 271 MPV 7.4 L Neutrophils % 86.7 H D Lymphocytes % 6.6 L D Monocytes % 5.7 Eosinophils % 0.7 Basophils % 0.3 INR 1.12 Sodium 141 Potassium 3.6 Chloride 105 Carbon Dioxide 30 Anion Gap 6 L BUN 17 D Creatinine 1.0 D Creat Clearance w eGFR 54.50 Random Glucose 112 H D Calcium 9.0 Phosphorus Magnesium Total Bilirubin 0.3 D AST 13 L D ALT 19 Alkaline Phosphatase 72 Creatine Kinase 74 Troponin I < 0.02 Total Protein 6.9 Albumin 3.8 Urine Color Urine Appearance Urine pH Ur Specific [place] Urine Protein Urine Glucose (UA) Urine Ketones Urine Blood Urine Nitrite Urine Bilirubin Urine Urobilinogen Ur Leukocyte Esterase 09/02/16 09/02/16 09/02/16 00:04 03:50 09:00 WBC 5.3 D RBC 3.82 Hgb 11.5 Hct 34.4 MCV 90.0 MCHC 33.6 RDW 15.0 Plt Count 238 MPV 7.5 Neutrophils % 73.4 Lymphocytes % 17.2 D Monocytes % 6.8 Eosinophils % 2.3 D Basophils % 0.3 INR Sodium Potassium Chloride Carbon Dioxide Anion Gap BUN Creatinine Creat Clearance w eGFR Random Glucose Calcium Phosphorus Magnesium Total Bilirubin AST ALT Alkaline Phosphatase Creatine Kinase 68 Troponin I < 0.02 Total Protein Albumin Urine Color Ltyellow Urine Appearance Clear Urine pH 6.0 Ur Specific [place] 1.008 Urine Protein Negative Urine Glucose (UA) Negative Urine Ketones Negative Urine Blood Negative Urine Nitrite Negative Urine Bilirubin Negative Urine Urobilinogen Negative Ur Leukocyte Esterase Negative 09/02/16 09:00 WBC RBC Hgb Hct MCV MCHC RDW Plt Count MPV Neutrophils % Lymphocytes % Monocytes % Eosinophils % Basophils % INR Sodium 145 Potassium 3.4 L Chloride 109 H Carbon Dioxide 29 Anion Gap 7 L BUN 11 D Creatinine 0.7 D Creat Clearance w eGFR Random Glucose 104 Calcium 8.8 Phosphorus 2.1 L Magnesium 2.1 Total Bilirubin AST ALT Alkaline Phosphatase Creatine Kinase 69 Troponin I < 0.02 Total Protein Albumin Urine Color Urine Appearance Urine pH Ur Specific [place] Urine Protein Urine Glucose (UA) Urine Ketones Urine Blood Urine Nitrite Urine Bilirubin Urine Urobilinogen Ur Leukocyte Esterase Sinus rhythm no ST-T abnormality Problem List - Problems (1) Syncope Code(s): R55 - SYNCOPE AND COLLAPSE Qualifiers: Syncope type: unspecified Qualified Code(s): R55 - Syncope and collapse (2) HTN (hypertension) Code(s): I10 - ESSENTIAL (PRIMARY) HYPERTENSION Qualifiers: Hypertension type: essential hypertension Qualified Code(s): I10 - Essential (primary) hypertension (3) Hypercholesterolemia Code(s): E78.0 - PURE HYPERCHOLESTEROLEMIA * DO NOT USE * Assessment/Plan 1. Syncope, likely vasovagal 2. HTN 3. Hypercholesterolemia 4. History of hemorrhoids 5. History of breast CA PLAN: 1. No significant arrhythmias noted on monitor and storage bin tender and patient remains asymptomatic and without orthostasis (supine 112/67 mmHg pulse 84 bpm, sitting 109/71 mmHg pulse 87 bpm, standing 125/74 mmHg pulse 92 bpm) 2. Continue present medications including Metoprolol ER, Hyzaar, Crestor and ASA 3. Discharge home and follow up with Dr. Salmeron as outpatient Claude Villalobos MD
[2016-09-02 19:04] VITALS: BP 150/83; PULSE 73; TEMP 99.7
[2016-09-02] MEDS ORDERED: METOPROLOL SUCCINATE 50 MG TAB.SR.24H (FP) PO SCH (22:00)
== END 2016-09-02 18:30 | disposition home or self-care (01) ==
LOC: JER 20:25 → JERBED 09-02 01:21 → INTOOBSV 09-02 02:03 → JERBED 09-02 02:03 → UNDOADMOB 09-02 02:03 → J4W 09-02 03:16 → JERBED 09-02 03:16 → J4W 09-02 03:16
PROVIDERS: ADMIT Internal Medicine; ATTEND Nurse Practitioner Acute Care
DX: R55 Syncope and collapse (principal); I10 Essential (primary) hypertension; E78.00 Pure hypercholesterolemia, unspecified; S09.90XA Unspecified injury of head, initial encounter; W18.39XA Other fall on same level, initial encounter; Y92.002 Bathroom of unspecified non-institutional (private) residence as the place of occurrence of the external cause; M54.5 Low back pain; K21.9 Gastro-esophageal reflux disease without esophagitis; Z98.61 Coronary angioplasty status; D64.9 Anemia, unspecified
CPT/HCPCS: 36415; 70450-TC; 71020-TC; 80048; 80053; 81003; 82550; 83735; 84100; 84484; 85025; 85610; 93005; 93010; 99285-25; G0378

== ENCOUNTER 2018-05-13 22:14 | Emergency (ER) | payer OTHER ==
[2018-05-13 22:18] VITALS: BP 117/81; PULSE 84; TEMP 98.1; BMI 25.5
--- NOTE | 2018-05-13 23:06 | PDOC ---
History of Present Illness - General History Source: Patient Exam Limitations: No Limitations - History of Present Illness Initial Comments: 05/13/18 23:03 The patient is a 73F with a PMH of HTN, HLD, GI bleed, hemorrhoids, polyps, GERD , BrCA, chronic low back pain who presents to the ER after having a fall. The patient states that she was walking out of her adventism when she opened the door and tripped on a step. She fell on her L side and struck the L side of her head. She denies LOC, CP, SOB, numbness, tingling, weakness, changes in vision, palpitations, lightheadedness, before, during, or after this episode. She states that she was unable to pick herself up. <Shelton Hernadez - Last Filed: 05/13/18 23:28> <Gee Whitfield - Last Filed: 05/14/18 01:04> - General Chief Complaint: Injury Stated Complaint: FALL/INJURY Time Seen by Provider: 05/13/18 22:26 Past History - Past Medical History Anemia: Yes Asthma: Yes ( A CHILD) Cancer: No Cardiac Disorders: Yes (CARDIAC CATH 09/2011; NO STENTS) CVA: No COPD: No CHF: No Dementia: No Diabetes: No GI Disorders: Yes (REFLUX) Disorders: No HTN: Yes Hypercholesterolemia: Yes Liver Disease: No Seizures: No Thyroid Disease: No - Surgical History Abdominal Surgery: Yes (HERNIA REPAIR) Appendectomy: No Cardiac Surgery: Yes (CARDIAC CATH) Cholecystectomy: Yes Lung Surgery: No Neurologic Surgery: Yes (CERVICAL LAMINECTOMY) Orthopedic Surgery: No - Suicide/Smoking/Psychosocial Hx Smoking History: Never smoked Have you smoked in the past 12 months: Yes Number of Cigarettes Smoked Daily: 4 Information on smoking cessation initiated: No 'Breaking Loose' booklet given: 09/01/16 Hx Alcohol Use: Yes (SOCIAL) Drug/Substance Use Hx: No Substance Use Type: None Hx Substance Use Treatment: No <Shelton Hernadez - Last Filed: 05/13/18 23:28> <Gee Whitfield - Last Filed: 05/14/18 01:04> - Past Medical History Allergies/Adverse Reactions: Allergies Allergy/AdvReac Type Severity Reaction Status Date / Time Penicillins Allergy Intermediate Rash Verified 05/13/18 22:18 Penicillins Allergy Intermediate Rash Uncoded 05/13/18 22:18 DUST Allergy Uncoded 05/13/18 22:18 Home Medications: Ambulatory Orders Cholecalciferol (Vitamin D3) [Vitamin D] 1,000 unit PO DAILY #0 capsule Losartan/Hydrochlorothiazide [Hyzaar 50-12.5 Tablet] 1 each PO DAILY #0 tablet 09/17/12 Melatonin 6 mg PO HS #0 tablet 09/17/12 Multivitamins [Multivit ([facility] Formulary)] 1 each PO DAILY #0 tab 09/17/12 Nitroglycerin Sublingual [Nitrostat -] 0.4 mg SL PRN 09/06/13 Rosuvastatin Calcium [Crestor] 5 mg PO DAILY 09/06/13 Metoprolol Succinate [Toprol XL -] 50 mg PO HS 09/07/13 Ascorbic Acid [Vitamin C -] 500 mg PO DAILY 05/09/14 Polyethylene Glycol 3350 [Miralax 119 gm Btl -] 17 gm PO HS PRN 05/09/14 Hydrocortisone Acetate [Anusol Hc Suppository -] 25 mg RC BID PRN #28 supp.rect 04/27/16 Witch Jo 50% (Tucks) [Tucks Pads -] 40 pad TP PRN PRN #40 pad 04/27/16 Aspirin Coated [Ecotrin -] 1 tab PO DAILY 09/01/16 Sertraline HCl [Zoloft] 50 mg PO DAILY 09/01/16 Pantoprazole Sodium [Protonix -] 20 mg PO DAILY tablet.ec 09/02/16 Tramadol HCl [Ultram] 50 mg PO BID PRN #7 tablet MDD 2 tabs 05/14/18 Review of Systems - Review of Systems Able to Perform ROS?: Yes Comments:: 05/13/18 23:12 GENERAL/CONSTITUTIONAL: Positive for fall. No fever or chills. No weakness. HEAD, EYES, EARS, NOSE AND THROAT: No change in vision. No ear pain or discharge. No sore throat. CARDIOVASCULAR: No chest pain, palpitations, or lightheadedness. RESPIRATORY: No cough, wheezing, shortness of breath, or hemoptysis. GASTROINTESTINAL: No nausea, vomiting, diarrhea, constipation, or abdominal pain. GENITOURINARY: No dysuria, frequency, hematuria, or change in urination. MUSCULOSKELETAL: Positive for head trauma. No joint or muscle swelling or pain. No neck or back pain. SKIN: No rash or lesions. NEUROLOGIC: No headache, numbness, tingling, focal weakness, loss of consciousness, or change in strength/sensation. ENDOCRINE: No increased thirst. No abnormal weight change. HEMATOLOGIC/LYMPHATIC: No anemia, easy bleeding, or history of blood clots. ALLERGIC/IMMUNOLOGIC: No hives or skin allergy. Is the patient limited Chinese proficient: No <Shelton Hernadez - Last Filed: 05/13/18 23:28> *Physical Exam - Vital Signs Last Vital Signs Temp Pulse Resp BP Pulse Ox 98.1 F 84 18 117/81 97 05/13/18 22:15 05/13/18 22:15 05/13/18 22:15 05/13/18 22:15 05/13/18 22:15 - Physical Exam Comments: 05/13/18 23:13 GENERAL: Well developed, well nourished. Awake and alert. No acute distress. HEENT: Normocephalic. 1cm hematoma over L parietal head. Hearing grossly normal. Moist mucous membranes. PERRLA, EOMI. No conjunctival pallor. Sclera are non-icteric. NECK: Supple. Full ROM. No c-spine tenderness. CARDIOVASCULAR: Regular rate and rhythm. No murmurs, rubs, or gallops. PULMONARY: No evidence of respiratory distress. Lungs clear to auscultation bilaterally. No wheezing, rales or rhonchi. ABDOMINAL: Soft. Non-tender. Non-distended. No rebound or guarding. GENITOURINARY: No CVA tenderness bilaterally. MUSCULOSKELETAL: 1cm abrasion over L elbow. TTP over L shoulder and humerus. Normal range of motion at all joints. No bony deformities or tenderness. EXTREMITIES: No cyanosis. No clubbing. No edema. No calf tenderness or swelling. SKIN: Warm and dry. Normal capillary refill. No rashes. No jaundice. NEUROLOGICAL: Alert, awake, appropriate. Cranial nerves 2-12 intact. No deficits to light touch and temperature in face, upper extremities and lower extremities. 5/5 strength in deltoids, biceps, triceps, quadriceps, hamstrings, and gastrocnemius. Finger to nose normal bilaterally. Normal speech. Gait is normal without ataxia. PSYCHIATRIC: Cooperative. Good eye contact. Appropriate mood and affect. <Shelton Hernadez - Last Filed: 05/13/18 23:28> - Vital Signs Last Vital Signs Temp Pulse Resp BP Pulse Ox 98.1 F 84 18 117/81 97 05/13/18 22:15 05/13/18 22:15 05/13/18 22:15 05/13/18 22:15 05/13/18 22:15 <Gee Whitfield - Last Filed: 05/14/18 01:04> ED Treatment Course - RADIOLOGY Radiology Studies Ordered: Category Date Time Status HEAD CT WITHOUT CONTRAST [CT] Stat CT Scan 05/13/18 22:56 Ordered <Shelton Hernadez - Last Filed: 05/13/18 23:28> - ADDITIONAL ORDERS Additional order review: Laboratory Results 05/13/18 22:54 POC Glucometer [id number] 05/13/18 22:54 POC Glucometer [id number] <Gee Whitfield - Last Filed: 05/14/18 01:04> Medical Decision Making - Medical Decision Making 05/13/18 23:14 The patient is a 73F with a PMH of HTN, HLD, depression who presents to the ER after sustaining a fall. The fall is mechanical based on the patient's history. FS in our facility is 129. PE remarkable for tremors in L elbow. Will CTH as pt is on AC. Will XR appropriate areas. Pending imaging. <Shelton Hernadez - Last Filed: 05/13/18 23:28> *DC/Admit/Observation/Transfer <Shelton Hernadez - Last Filed: 05/13/18 23:28> <Gee Whitfield - Last Filed: 05/14/18 01:04> Diagnosis at time of Disposition: Accidental fall Qualifiers: Encounter type: initial encounter Qualified Code(s): W19.XXXA - Unspecified fall, initial encounter Radial head fracture, closed Qualifiers: Encounter type: initial encounter Fracture alignment: nondisplaced Laterality: left Qualified Code(s): S52.125A - Nondisplaced fracture of head of left radius , initial encounter for closed fracture - Discharge Dispostion Disposition: HOME Condition at time of disposition: Stable - Prescriptions Prescriptions: Tramadol HCl [Ultram] 50 mg PO BID PRN #7 tablet MDD 2 tabs PRN Reason: Pain - Referrals Referrals: Ambrose Salter MD [Primary Care Provider] - Raymundo Merchant MD [Staff Physician] - Antoine Carter MD [Staff Physician] - - Patient Instructions Printed Discharge Instructions: How to Use a Sling, DI for Elbow Fracture Additional Instructions: A CAT scan today shows no acute injury, but an elbow x-ray shows likely fracture of the radial head. Activity as tolerated. Stay hydrated. Maintain splint and sling until further orthopedic evaluation. Tylenol 1000 mg every 8 hours as needed for moderate pain, tramadol as prescribed as needed for severe pain. Ice and elevate the affected areas for 20 minutes every 3-4 hours to reduce swelling. Continue your medications as previously prescribed by your physician. You should follow up with an orthopedic (Dr. Merchant or Dr. Carter) as soon as possible regarding today's emergency department visit. Return to the emergency department for any new or concerning symptoms, particularly severe pain or swelling, numbness or tingling, discoloration, severe headache or confusion. - Post Discharge Activity
--- NOTE | 2018-05-13 23:53 | PDOC ---
Attending Attestation - Resident Resident Name: LeeevetteShelton - ED Attending Attestation I have performed the following: I have examined & evaluated the patient, The case was reviewed & discussed with the resident, I agree w/resident's findings & plan - HPI HPI: 05/13/18 23:50 73y/o HTN on baby aspirin daily p/w head and LUE injury s/p trip and fall on step. Pt recalls fall, declines prodrome/syncope/LOC, struck L head and shoulder , c/o L shoulder pain but no motor/sensory deficit. no louis/vision change/speech change/n/v/focal deficit. no cp/sob/palpitations - Physicial Exam PE: 05/13/18 23:52 Vital signs are within normal limits Well-appearing, pleasant and smiling Head is atraumatic, small scalp hematoma without skull deformity No C-spine tenderness, full range of motion Heart is regular, lungs are clear without rib tenderness Tender left shoulder/proximal humerus, no clavicular tenderness or crepitus, full range of motion of left elbow with slight focal tenderness at radial head, no swelling or effusion. Full wrist and hand strength with normal exam Normal pelvis, no lower extremity injury, full range of motion - Medical Decision Making 05/13/18 23:53 73-year-old female on aspirin with mechanical trip and fall on one step, positive head injury without red flags on history or physical exam, left shoulder contusion, rule out fracture. Neurovascular intact. CT head Left upper extremity x-rays Reassess 05/14/18 00:48 ct head negative for acute pathology on my prelim review: chest/shoulder/humerus wnl, elbow with radial head fx. posterior splint and sling applied, tolerated well, remained neuro intact. f/u with [facility] (has seen in past but ? insurance issues)/ortho. understands return criteria daughters at bedside
[2018-05-14] MEDS ORDERED: traMADol HCL 50 MG TABLET PO ONE (01:04)
[2018-05-14] MEDS ORDERED: traMADol HCL 50 MG TABLET ONE (01:29)
--- NOTE | 2018-05-14 09:05 | PDOC ---
Patient Follow-up (Call Back) - Post ED Follow - Up Condition at time of discharge: Stable Disposition at time of original discharge: HOME Reason for Call Back: Radiology (Received call from radiologist Dr. Navarro who is reading the CAT scan as a possible small subarachnoid bleed. Patient did fall striking her head and was sent home. I have called and spoke to the patient on the phone who is arranging transportation by one of her daughters back to [facility] for repeat CAT scan.)
== END 2018-05-14 01:33 | disposition home or self-care (01) ==
LOC: JER 22:14
DX: S52.125A Nondisplaced fracture of head of left radius, initial encounter for closed fracture (principal); W10.8XXA Fall (on) (from) other stairs and steps, initial encounter; Y93.89 Activity, other specified; Y92.22 Religious institution as the place of occurrence of the external cause; Y99.8 Other external cause status; I25.10 Atherosclerotic heart disease of native coronary artery without angina pectoris; Z98.61 Coronary angioplasty status; I10 Essential (primary) hypertension; E78.5 Hyperlipidemia, unspecified; K21.9 Gastro-esophageal reflux disease without esophagitis; M54.5 Low back pain; G89.29 Other chronic pain; Z87.19 Personal history of other diseases of the digestive system; Z85.3 Personal history of malignant neoplasm of breast
CPT/HCPCS: 70450-TC; 71045-TC-FY; 73030-TC-LT-FY; 73060-TC-LT-FY; 73070-TC-LT-FY; 82962; 99282-25

== ENCOUNTER 2018-05-14 10:41 | Emergency (ER) | payer OTHER ==
[2018-05-14 10:48] VITALS: BP 114/72; PULSE 78; TEMP 98.6; BMI 25.5
--- NOTE | 2018-05-14 11:37 | PDOC ---
History of Present Illness - General Chief Complaint: Revisit, Lab Variance Stated Complaint: LAB VARIANCE Time Seen by Provider: 05/14/18 10:53 History Source: Patient Exam Limitations: No Limitations - History of Present Illness Initial Comments: 05/14/18 11:11 73 y/o female presents to the ED for reevaluation. patient states fell yesterday on her left side striking her right arm sustaining a fracture and left head injury. Patient was sent home but today received a phone call from the medical staff that she needed to return to rule out a subarachnoid bleed due to the second radiologist reading. Patient denies visual changes, weakness, nausea but does complain of right-sided headache which she states has had since the fall. Patient is on no anticoagulation therapy Timing/Duration: constant Severity: mild Associated Symptoms: reports: headaches Past History - Travel Traveled outside of the country in the last 30 days: No Close contact w/someone who was outside of country & ill: No - Past Medical History Allergies/Adverse Reactions: Allergies Allergy/AdvReac Type Severity Reaction Status Date / Time Penicillins Allergy Intermediate Rash Verified 05/13/18 22:18 DUST Allergy Uncoded 05/13/18 22:18 Home Medications: Ambulatory Orders Ascorbic Acid [Vitamin C -] 500 mg PO DAILY 05/14/18 Aspirin [Ecotrin] 81 mg PO DAILY 05/14/18 Bifidobacterium Infantis [Align] 10.5 mg PO DAILY 05/14/18 Cholecalciferol (Vitamin D3) [Vitamin D3 -] 1,000 unit PO DAILY 05/14/18 Losartan 50Mg/Hctz 12.5MG [Hyzaar -] 1 tab PO DAILY 05/14/18 Metoprolol Succinate 25 mg PO DAILY 05/14/18 Multivit-Min/FA/Lycopen/Lutein [Centrum Silver Tablet] 1 each PO DAILY 05/14/18 Omeprazole 20 mg PO DAILY 05/14/18 Rosuvastatin [Crestor -] 5 mg PO HS 05/14/18 Tramadol HCl [Ultram] 50 mg PO BID PRN #7 tablet MDD 2 tabs 05/14/18 Vitamin E 400 unit PO DAILY 05/14/18 Anemia: Yes Asthma: Yes ( A CHILD) Cancer: No Cardiac Disorders: Yes (CARDIAC CATH 09/2011; NO STENTS) CVA: No COPD: No CHF: No Dementia: No Diabetes: No GI Disorders: Yes (REFLUX) Disorders: No HTN: Yes Hypercholesterolemia: Yes Liver Disease: No Seizures: No Thyroid Disease: No - Surgical History Abdominal Surgery: Yes (HERNIA REPAIR) Appendectomy: No Cardiac Surgery: Yes (CARDIAC CATH) Cholecystectomy: Yes Lung Surgery: No Neurologic Surgery: Yes (CERVICAL LAMINECTOMY) Orthopedic Surgery: No - Immunization History Immunization Up to Date: Yes - Suicide/Smoking/Psychosocial Hx Smoking History: Never smoked Have you smoked in the past 12 months: Yes Number of Cigarettes Smoked Daily: 4 'Breaking Loose' booklet given: 09/01/16 Hx Alcohol Use: No Drug/Substance Use Hx: No Substance Use Type: None Hx Substance Use Treatment: No Patient Lives Alone: Yes Lives with/in: lives alone Review of Systems - Review of Systems Able to Perform ROS?: Yes Constitutional: No: Symptoms Reported HEENTM: No: Symptoms Reported Respiratory: No: Symptoms reported Cardiac (ROS): No: Symptoms Reported ABD/GI: No: Symptoms Reported : No: Symptoms Reported Musculoskeletal: No: Symptoms Reported Integumentary: No: Symptoms Reported Neurological: Yes: Headache. No: Weakness, Dizziness Endocrine: No: Symptoms Reported *Physical Exam - Vital Signs Last Vital Signs Temp Pulse Resp BP Pulse Ox 98.6 F 78 16 114/72 95 05/14/18 10:44 05/14/18 10:44 05/14/18 10:44 05/14/18 10:44 05/14/18 10:44 - Physical Exam General Appearance: Yes: Nourished, Appropriately Dressed. No: Apparent Distress HEENT: positive: EOMI, ALL, TMs Normal, Pharynx Normal. negative: Pale Conjunctivae Neck: positive: Supple, Decreased range of motion Respiratory/Chest: positive: Lungs Clear, Normal Breath Sounds. negative: Respiratory Distress, Accessory Muscle Use Cardiovascular: positive: Regular Rhythm, Regular Rate. negative: Murmur Gastrointestinal/Abdominal: positive: Soft. negative: Tenderness Extremity: positive: Other Integumentary: positive: Normal Color, Warm, Moist Neurologic: positive: Normal Mood/Affect, Motor Strength 5/5 (ambulatory) ED Treatment Course - LABORATORY CBC & Chemistry Diagram: 05/14/18 11:55 - RADIOLOGY Radiology Studies Ordered: Category Date Time Status HEAD CT WITHOUT CONTRAST [CT] Stat CT Scan 05/14/18 10:54 Ordered Medical Decision Making - Medical Decision Making 05/14/18 12:05 CC: head injury, request repeat head CT . yesterday's ? SAH Exam: no neurofocal deficits Plan: head ct, cbc 05/14/18 12:54 Laboratory Tests 01/18/18 05/14/18 12:40 11:55 Hgb 13.0 13.3 H[address] 39[address] negative. I have reviewed the elbow and humerus x-ray along with the x- ray reading reports which were read as negative. Patient was removed from the short arm splint, small superficial left elbow wound cleansed and applied a nonstick bandage. Patient placed back in sling for comfort measures. Patient will follow-up with orthopedist if symptoms continue as far as elbow pain. Patient also given supportive care instructions. *DC/Admit/Observation/Transfer Diagnosis at time of Disposition: Head injury - Discharge Dispostion Disposition: HOME Condition at time of disposition: Good - Referrals Referrals: Ambrose Salter MD [Primary Care Provider] - Raymundo Merchant MD [Staff Physician] - - Patient Instructions Printed Discharge Instructions: DI for Closed Head Injury Additional Instructions: Apply ice to the affected area as much as she can tolerate for the next 72 hours to help inflammation and pain. May take tramadol as needed for pain or may take Tylenol if tramadol is too strong. Also follow up with Dr. Merchant if symptoms if elbow pain continue on by day 5. Change bandage daily to left elbow with nonstick dressing and apply bacitracin until healed - Post Discharge Activity
[2018-05-14 12:03] LABS: BASO % 0.4 % (0-2.0); EOS % 1.2 % (0-4.5); HEMATOCRIT 38.4 % (32.4-45.2); HEMOGLOBIN 13.3 GM/dL (10.7-15.3); LYMPH % 14.8 % (8-40); MCH 31.4 pg (25.7-33.7); MCHC 34.5 g/dl (32.0-36.0); MEAN CELL VOLUME 90.9 fl (80-96); MEAN PLT VOLUME 7.6 fl (7.5-11.1); MONO % 8.2 % (3.8-10.2); NEUT % 75.4 % (42.8-82.8); PLATELET COUNT 279 K/MM3 (134-434); RBC 4.23 M/mm3 (3.60-5.2); RDW 15.4 % (11.6-15.6); WHITE BLOOD COUNT 6.3 K/mm3 (4.0-10.0)
[2018-05-14] MEDS ORDERED: traMADol HCL 50 MG TABLET PO ONE (12:40)
[2018-05-14] MEDS ORDERED: traMADol HCL 50 MG TABLET ONE (13:06)
== END 2018-05-14 13:21 | disposition home or self-care (01) ==
LOC: JER 10:41
DX: S09.90XA Unspecified injury of head, initial encounter (principal); W18.39XA Other fall on same level, initial encounter; Y93.89 Activity, other specified; Y92.89 Other specified places as the place of occurrence of the external cause; Z87.891 Personal history of nicotine dependence; K21.9 Gastro-esophageal reflux disease without esophagitis; I10 Essential (primary) hypertension; E78.00 Pure hypercholesterolemia, unspecified; D64.9 Anemia, unspecified
CPT/HCPCS: 36415; 70450-TC; 85025; 99281-25

== ENCOUNTER 2021-02-04 19:39 | Emergency (ER) | payer OTHER ==
[2021-02-04 20:02] VITALS: BP 104/71; PULSE 75; TEMP 98.4; BMI 28.8
== END 2021-02-05 00:16 | disposition home or self-care (01) ==
LOC: JER 19:39
DX: N28.1 Cyst of kidney, acquired (principal)
CPT/HCPCS: 73700-TC-RT; 99284-25

== ENCOUNTER 2022-01-20 04:15 | Day surgery (SDC) | payer OTHER ==
[2022-01-16 11:47] VITALS: BMI 26.9
[2022-01-20] MEDS ORDERED: LIDOCAINE HCL 1%, 10 MG/ML (20ML VIAL) ONE (09:01)
[2022-01-20] MEDS ORDERED: BUPIVACAINE HCL/PF 0.5% (5MG/ML) 10 ML VIAL ONE (09:02)
[2022-01-20] MEDS ORDERED: MIDAZOLAM HCL 2 MG/2 ML SINGLE DOSE VIAL ONE (09:29)
[2022-01-20] MEDS ORDERED: PROPOFOL 20 ML ONE ×2 (09:33)
[2022-01-20] MEDS ORDERED: ceFAZolin SODIUM 1 GM VIAL IVPB ONE (09:36)
[2022-01-20] MEDS ORDERED: LIDOCAINE HCL 1%, 10 MG/ML (50 mL VIAL) NR ONE ×2 (09:45)
[2022-01-20] MEDS ORDERED: BUPIVACAINE HCL/PF 0.5% (5MG/ML) 10 ML VIAL IJ ONE ×2 (09:46)
[2022-01-20 12:15] VITALS: BP 130/71; PULSE 68; TEMP 98.8
== END 2022-01-20 11:58 | disposition home or self-care (01) ==
LOC: JASU-SURG 04:15
PROVIDERS: ATTEND Orthopaedic Surgery
PROC: 0LB60ZZ Excision of Left Lower Arm and Wrist Tendon, Open Approach (ICD-10-PCS; 2022-01-20)
PROC: 0LB60ZZ Excision of Left Lower Arm and Wrist Tendon, Open Approach (ICD-10-PCS; 2022-01-20)
PROC: 0LB60ZZ Excision of Left Lower Arm and Wrist Tendon, Open Approach (ICD-10-PCS; 2022-01-20)
PROC: 0LB60ZZ Excision of Left Lower Arm and Wrist Tendon, Open Approach (ICD-10-PCS; 2022-01-20)
PROC: 0LB60ZZ Excision of Left Lower Arm and Wrist Tendon, Open Approach (ICD-10-PCS; 2022-01-20)
PROC: 0LB60ZZ Excision of Left Lower Arm and Wrist Tendon, Open Approach (ICD-10-PCS; 2022-01-20)
PROC: 0LB60ZZ Excision of Left Lower Arm and Wrist Tendon, Open Approach (ICD-10-PCS; 2022-01-20)
PROC: 0LB60ZZ Excision of Left Lower Arm and Wrist Tendon, Open Approach (ICD-10-PCS; 2022-01-20)
PROC: 0LB60ZZ Excision of Left Lower Arm and Wrist Tendon, Open Approach (ICD-10-PCS; 2022-01-20)
PROC: 01N50ZZ Release Median Nerve, Open Approach (ICD-10-PCS; principal; 2022-01-20 10:00)
DX: G56.02 Carpal tunnel syndrome, left upper limb (principal); M65.842 Other synovitis and tenosynovitis, left hand
CPT/HCPCS: 88304-TC

== ENCOUNTER 2022-04-03 04:04 | Day surgery (SDC) | payer OTHER ==
[2022-03-28 10:40] VITALS: BMI 27.8
[2022-04-03] MEDS ORDERED: MIDAZOLAM HCL 2 MG/2 ML SINGLE DOSE VIAL ONE (13:57)
[2022-04-03] MEDS ORDERED: PROPOFOL 40 ML ONE (13:57)
[2022-04-03] MEDS ORDERED: SUCCINYLCHOLINE CHLORIDE 200 MG/10 ML SYRINGE ONE (14:00)
[2022-04-03] MEDS ORDERED: EPINEPHrine/PF 1 MG/1 ML (1:1,000) AMPULE ONE (14:01)
[2022-04-03] MEDS ORDERED: LIDOCAINE HCL 2% 100 MG/5 ML DISP.SYRIN ONE (14:03)
[2022-04-03] MEDS ORDERED: DEXAMETHASONE SOD PHOSPHATE 4 MG/1 ML VIAL ONE (14:31)
[2022-04-03] MEDS ORDERED: ACETAMINOPHEN INJECTION 100 ML IVPB ONE (14:31)
[2022-04-03] MEDS ORDERED: ONDANSETRON 4 MG/2 ML VIAL ONE (14:31)
[2022-04-03] MEDS ORDERED: KETOROLAC TROMETHAMINE 30 MG/1 ML VIAL ONE (14:42)
[2022-04-03] MEDS ORDERED: ONDANSETRON 4 MG/2 ML VIAL IVPUSH PRN ×2 (14:55→14:59)
[2022-04-03] MEDS ORDERED: oxyCODONE HCL 5 MG TABLET PO PRN ×2 (14:55→14:59)
[2022-04-03] MEDS ORDERED: IBUPROFEN 600 MG TABLET (FP) PO PRN (14:55)
[2022-04-03] MEDS ORDERED: IBUPROFEN 800 MG/8 ML IJ IVPB PRN (14:55)
[2022-04-03] MEDS ORDERED: LACTATED RINGERS SOLUTION 1,000 ML IV SCH (15:00)
[2022-04-03] MEDS ORDERED: ELECTROLYTE-148 SOLN 1,000 ML IV SCH (15:00)
[2022-04-03 16:13] VITALS: TEMP 98.1
[2022-04-03 17:28] VITALS: BP 128/74; PULSE 67; RESP 20
== END 2022-04-03 17:15 | disposition home or self-care (01) ==
LOC: JASU-SURG 04:04
PROVIDERS: ATTEND Obstetrics & Gynecology
PROC: 0UDB7ZX Extraction of Endometrium, Via Natural or Artificial Opening, Diagnostic (ICD-10-PCS; 2022-04-03)
PROC: 0UB98ZX Excision of Uterus, Via Natural or Artificial Opening Endoscopic, Diagnostic (ICD-10-PCS; principal; 2022-04-03 14:00)
DX: N95.0 Postmenopausal bleeding (principal); N84.0 Polyp of corpus uteri
CPT/HCPCS: 88305-TC; 94760

== ENCOUNTER 2023-10-15 17:35 | Emergency (ER) | payer OTHER ==
[2023-10-15 17:54] VITALS: TEMP 98.5; BMI 24.7
[2023-10-15] MEDS ORDERED: ACETAMINOPHEN INJECTION 100 ML IVPB ONE (18:36)
[2023-10-15] MEDS ORDERED: LIDOCAINE 4% PATCH TP ONE (18:36)
[2023-10-15] MEDS: ACETAMINOPHEN 1000 MG/100 ML BAG IVPB ONE (18:56)
[2023-10-15] MEDS: LIDOCAINE 4% PATCH TP ONE (18:56)
[2023-10-15 19:23] LABS: BASO % 0.5 % (0-2.0); EOS % 0.5 % (0-4.5); HEMATOCRIT 36.1 % (32.4-45.2); LYMPH % 9.4 % (8-40); MCHC 33.2 g/dl (32.0-36.0); MEAN CELL VOLUME 90.5 fl (80-96); MEAN PLT VOLUME 7.8 fl (7.5-11.1); MONO % 6.2 % (3.8-10.2); NEUT % 83.4 % (42.8-82.8); PLATELET COUNT 307 10^3/uL (134-434); RBC 3.99 M/mm3 (3.60-5.2); RDW 15.4 % (11.6-15.6); WHITE BLOOD COUNT 8.8 K/mm3 (4.0-10.0)
[2023-10-15 19:47] LABS: CALCIUM 9.3 mg/dL (8.5-10.1)
[2023-10-15 19:48] LABS: ALBUMIN 3.7 g/dl (3.4-5.0); BLOOD UREA NITROGEN 11.7 mg/dL (7-18)
[2023-10-15 19:51] LABS: CREATININE 0.9 mg/dL (0.55-1.3)
[2023-10-15 19:52] LABS: TOT PROT 6.8 g/dl (6.4-8.2)
[2023-10-15 19:53] LABS: BILIRUBIN,TOTAL 0.6 mg/dL (0.2-1)
[2023-10-15] MEDS ORDERED: LIDOCAINE PATCH REMOVAL MC SCH (22:00)
[2023-10-15 22:37] VITALS: BP 136/86; PULSE 91; RESP 18
== END 2023-10-16 00:34 | disposition home or self-care (01) ==
LOC: JER 17:35
PROC: 3E033NZ Introduction of Analgesics, Hypnotics, Sedatives into Peripheral Vein, Percutaneous Approach (ICD-10-PCS; principal; 2023-10-15)
DX: M54.6 Pain in thoracic spine (principal); R51.9 Headache, unspecified
CPT/HCPCS: 36415; 70450-TC; 71260-TC; 72125-TC; 72128-TC; 74177-TC; 80053; 85025; 99284-25; J0131; Q9967

== ENCOUNTER 2025-04-04 07:45 | Day surgery (SDC) | payer OTHER ==
[2025-03-30 12:40] VITALS: BMI 28.1
[2025-04-04] MEDS ORDERED: VANCOMYCIN 1,000 MG VIAL (RESTRICTED TO ID ONLY) ONE (09:33)
[2025-04-04] MEDS ORDERED: ROPIVACAINE HCL/PF 100 MG/20 ML VIAL ONE (09:38)
[2025-04-04] MEDS ORDERED: DEXAMETHASONE SOD PHOSPHATE 10 MG/1 ML VIAL ONE (09:38)
[2025-04-04] MEDS ORDERED: MIDAZOLAM HCL 2 MG/2 ML SINGLE DOSE VIAL ONE (09:45)
[2025-04-04] MEDS ORDERED: BUPIVACAINE HCL/PF 0.5% (5MG/ML) 10 ML VIAL ONE (09:55)
[2025-04-04] MEDS ORDERED: SUCCINYLCHOLINE CHLORIDE 200 MG/10 ML SYRINGE ONE (11:08)
[2025-04-04] MEDS ORDERED: PROPOFOL 20 ML ONE ×2 (11:08→13:46)
[2025-04-04] MEDS ORDERED: ROCURONIUM BROMIDE 50 MG/5 ML SYRINGE ONE (11:30)
[2025-04-04] MEDS ORDERED: PROPOFOL 60 ML ONE (12:10)
[2025-04-04] MEDS ORDERED: BUPIVICAINE 0.25%/MORPH PF/KETOROLAC - 51ML DISP.SYRINGE IA ONE (12:13)
[2025-04-04] MEDS ORDERED: SUGAMMADEX SODIUM 200 MG/2 ML VIAL ONE (13:14)
[2025-04-04] MEDS ORDERED: MAG HYDROX/AL HYDROX/SIMETH 30 ML UNIT-DOSE CUP PO PRN (13:44)
[2025-04-04] MEDS ORDERED: ONDANSETRON 4 MG/2 ML VIAL IVPUSH PRN ×2 (13:44→14:17)
[2025-04-04] MEDS ORDERED: NITROGLYCERIN SUBLINGUAL 1/150 0.4 MG TAB SL PRN (13:48)
[2025-04-04] MEDS ORDERED: LACTATED RINGERS SOLUTION 1,000 ML IV SCH (14:30)
[2025-04-04] MEDS: LACTATED RINGERS SOLUTION 1,000 ML IV SCH (16:16)
[2025-04-04] MEDS: CEFAZOLIN SODIUM 2 GM in DEXTROSE 5%-WATER 100 ML IVPB SCH (19:54)
[2025-04-04] MEDS: TOPIRAMATE 25 MG TABLET PO SCH (21:16)
[2025-04-04] MEDS: SENNOSIDES/DOCUSATE COMBO (SENNA PLUS) TABLET (UD) PO SCH (21:16)
[2025-04-04] MEDS: PRAMIPEXOLE DIHYDROCHLORIDE 0.25 MG TABLET PO SCH (21:17)
[2025-04-04] MEDS: ROSUVASTATIN CA 5 MG TABLET PO SCH (21:17)
[2025-04-04] MEDS: LOSARTAN POTASSIUM 50 MG TABLET PO SCH (21:17)
[2025-04-04] MEDS: HYDROCHLOROTHIAZIDE 12.5 MG CAPSULE (FP) PO SCH (21:17)
[2025-04-04] MEDS: ACETAMINOPHEN 1000 MG/100 ML BAG IVPB SCH (21:17)
[2025-04-05 07:37] LABS: MCHC 31.2 g/dl (32.2-35.5); MEAN CELL VOLUME 86.5 fl (79.4-94.8); MEAN PLT VOLUME 9.8 fl (9.4-12.3); RDW 16.9 % (12.5-17.0)
[2025-04-05 07:50] LABS: CO2 29 mmol/L (21-32); CREATININE 1.0 mg/dl (0.6-1.3); GLUCOSE,RANDOM 146 mg/dl (74-106)
[2025-04-05] MEDS ORDERED: SODIUM CHLORIDE NASAL SPRAY 44 ML BOTTLE NS PRN (08:49)
[2025-04-05] MEDS: SERTRALINE HCL 50 MG TABLET (FP) PO SCH (09:26)
[2025-04-05] MEDS: ASPIRIN COATED 81 MG TABLET.EC PO SCH (09:27)
[2025-04-05] MEDS: MULTIVITAMINS (DAILY MVI) TABLET (FP) PO SCH (09:27)
[2025-04-05] MEDS: FUROSEMIDE 20 MG TABLET (FP) PO SCH (09:27)
[2025-04-05] MEDS: PANTOPRAZOLE 40 MG TABLET PO SCH (09:27)
[2025-04-05] MEDS ORDERED: PATIENT'S OWN MEDICATION (NON-FORMULARY) (Mirabegron [Myrbetriq] 50 MG Tab.Er.24h) PO SCH (10:00)
[2025-04-05] MEDS ORDERED: PATIENT'S OWN MEDICATION (NON-FORMULARY) (Omeprazole 20 MG Capsule.Dr) PO SCH (10:00)
[2025-04-05] MEDS: FLUTICASONE/UMECLIDIN/VILANTER(100-62.5-25 TRELEGY ELLIPTA) INAHLER IH SCH (11:01)
[2025-04-05 14:16] LABS: ABSOLUTE IMMATURE GRANULOCYTES 0.01 x10^3/uL (0.0-0.031); BASOPHILS # 0.00 x10^3/uL (0.01-0.08); EOSINOPHIL % 0.0 % (0.7-5.8); EOSINOPHILS # 0.00 x10^3/uL (0.04-0.36); MCHC 31.2 g/dl (32.2-35.5); MEAN CELL VOLUME 87.2 fl (79.4-94.8); MEAN PLT VOLUME 9.9 fl (9.4-12.3); MONOCYTE # 0.97 x10^3/uL (0.24-0.86); MONOCYTE % 10.3 % (4.7-12.5); RDW 17.0 % (12.5-17.0)
[2025-04-06] MEDS: ACETAMINOPHEN 500 MG TABLET (FP) PO ONE (02:13)
[2025-04-06 07:44] LABS: ABSOLUTE IMMATURE GRANULOCYTES 0.01 x10^3/uL (0.0-0.031); BASOPHILS # 0.01 x10^3/uL (0.01-0.08); EOSINOPHIL % 0.3 % (0.7-5.8); EOSINOPHILS # 0.02 x10^3/uL (0.04-0.36); MCHC 32.4 g/dl (32.2-35.5); MEAN CELL VOLUME 83.6 fl (79.4-94.8); MEAN PLT VOLUME 9.5 fl (9.4-12.3); MONOCYTE # 0.72 x10^3/uL (0.24-0.86); MONOCYTE % 9.4 % (4.7-12.5); RDW 16.3 % (12.5-17.0)
[2025-04-06 08:25] LABS: ALK PHOS 50.0 U/L (45-117); CO2 28.0 mmol/L (21-32); CREATININE 0.9 mg/dl (0.6-1.3); GLUCOSE,RANDOM 113.0 mg/dl (74-106); SGOT/AST 38.0 U/L (15-37); SGPT/ALT 13.0 U/L (7-52); TOT PROT 4.9 g/dl (6.4-8.2)
[2025-04-06] MEDS: POTASSIUM CHLORIDE ORAL LIQUID 20 MEQ/15 ML PO ONE (15:21)
[2025-04-07 02:05] VITALS: RESP 18
[2025-04-07 08:58] LABS: ABSOLUTE IMMATURE GRANULOCYTES 0.02 x10^3/uL (0.0-0.031); BASOPHILS # 0.02 x10^3/uL (0.01-0.08); EOSINOPHIL % 1.7 % (0.7-5.8); EOSINOPHILS # 0.15 x10^3/uL (0.04-0.36); MCHC 31.7 g/dl (32.2-35.5); MEAN CELL VOLUME 84.5 fl (79.4-94.8); MEAN PLT VOLUME 9.2 fl (9.4-12.3); MONOCYTE # 0.62 x10^3/uL (0.24-0.86); MONOCYTE % 7.0 % (4.7-12.5); RDW 16.8 % (12.5-17.0)
[2025-04-07 09:31] LABS: CO2 28.0 mmol/L (21-32); CREATININE 0.8 mg/dl (0.6-1.3); GLUCOSE,RANDOM 113.0 mg/dl (74-106); TOT PROT 5.6 g/dl (6.4-8.2)
[2025-04-07 09:32] LABS: ALK PHOS 72.0 U/L (45-117); SGOT/AST 46.0 U/L (15-37); SGPT/ALT 21.0 U/L (7-52)
[2025-04-07 13:45] VITALS: BP 121/76; PULSE 82; TEMP 98.1
== END 2025-04-07 15:05 ==
LOC: FASUSAT 07:45 → FM/S 17:00 → FASUSAT 04-07 15:05
PROVIDERS: ATTEND Orthopaedic Surgery Sports Medicine
PROC: 8E0W7CZ Robotic Assisted Procedure of Trunk Region, Via Natural or Artificial Opening (ICD-10-PCS; 2025-04-04)
PROC: 0SRB03A Replacement of Left Hip Joint with Ceramic Synthetic Substitute, Uncemented, Open Approach (ICD-10-PCS; principal; 2025-04-04 11:51)
DX: M16.12 Unilateral primary osteoarthritis, left hip (principal)
CPT/HCPCS: 20985; 27130; S2900; 36415; 36430; 71045-TC-FY; 73502-TC-LT-FY; 80048; 80053; 82607; 82728; 83540; 83550; 85025; 85027; 86922; 94760; 97010-GP; 97116-GP; 97162-GP; C1713; C1776; J1100; P9038; P9058